=== PATIENT | female | born 1940 | race Caucasian/White ===

== ENCOUNTER → 2021-12-27 13:11 | Outpatient (CLI) | payer MEDICARE, SELFPAY ==
--- NOTE | 2021-12-27 | DI.ECHO.S_ITS ---
[facility] +---------+ : : [address] : : : : [id number] : : : : Phone: [phone]+ Echocardiogram Report + + :Name: RICHARD LARRY Study Date: 12/27/2021 Height: 60 in : :[facility] ReadingLocation: Weight: 247 lb : : Gender: Female BSA: 2.0 m2 : :: 1940 Age: 81 yrs BP: 148/82 mmHg: :Reason For Study: Atrial fibrillation : :Ordering Physician: FORD, : :FITZ Performed By: Jeff Maddox : :Referring: FITZ KENYON : + + Interpretation Summary 1) Normal left ventricular thickness, size, wall motion, and systolic function (EF 55-60%). 2) Normal right ventricular size with mildly reduced function. 3) Both atria are severely dilated. 4) There is mild aortic regurgitation. 5) There is mild aortic stenosis (valve 1.5cm2, mean gradient 8mmHg, severity ratio 0.52). 6) No prior Echo available for comparison. Procedure: A two-dimensional transthoracic echocardiogram with color flow and Doppler was performed. The study quality was technically adequate. There is no prior echocardiogram noted for this patient. Left Ventricle: The left ventricle is normal in size and wall thickness. Left ventricular systolic function is normal. The ejection fraction is estimated to be 55-60%. There are no focal wall motion abnormalities. Diastolic function could not be accurately assessed due to atrial fibrillation. Right Ventricle: The right ventricle is normal size. Right ventricular systolic function is mildly reduced. Atria: Both atria are severely dilated. The interatrial septum grossly appears intact with no obvious evidence for an atrial septal defect. Mitral Valve: There is mild mitral annular calcification. There is mild mitral regurgitation. Aortic Valve: The aortic valve is mildly calcified. There is mild aortic stenosis. There is mild aortic regurgitation. Tricuspid Valve: The tricuspid valve is normal in structure and function. There is mild tricuspid regurgitation. The right ventricular systolic pressure is estimated to be at least 39 mmHg based on an estimated right atrial pressure of 3 mm Hg. Pulmonic Valve: The pulmonic valve is not well seen, but is grossly normal. There is no pulmonic valvular regurgitation. Great Vessels: The aortic root is normal size. The dimensions of the ascending aorta are normal. The IVC is of normal diameter and collapses greater than 50% with a sniff. This suggests a low right atrial pressure of 3 mm Hg. Pericardium/ Pleura There is no pericardial effusion. There is no pleural effusion. MMode/2D Measurements & Calculations LVIDd: 5.0 cm LVOT diam: 2.0 cm LVIDs: 3.1 cm Ao root diam: 3.0 cm FS: 38.0 % asc Aorta Diam: 3.5 cm IVSd: 0.80 cm LVPWd: 0.80 cm LV zazueta. diameter/BSA (cm/m^2): 2.4 LV sys. diameter/BSA (cm/m^2): 1.5 LA dimension: 4.2 cm RA long axis: 6.7 cm LA A2 area: 29.6 cm2 IVC diam: 2.0 cm LA A4 area: 30.8 cm2 LA length (vol): 7.6 cm LA vol: 101.7 ml LA vol index: 49.8 ml/m2 TAPSE_phl: 2.1 cm Doppler Measurements & Calculations Ao V2 max: 184.0 cm/sec LVOT Max Valerio: 85.5 cm/sec Ao V2 mean: 135.0 cm/sec LV V1 max P.9 mmHg Ao max P.0 mmHg LV V1 VTI: 19.1 cm Ao mean P.0 mmHg DAYSI(I,D): 1.6 cm2 Ao V2 VTI: 36.4 cm DAYSI(V,D): 1.5 cm2 sev ratio: 0.52 DAYSI indexed to BSA (cm^2/m^2): 0.81 AI P1/2t: 451.8 msec AI dec slope: 258.0 cm/sec2 TR max valerio: 299.0 cm/sec SV(LVOT): 60.0 ml TR max P.8 mmHg AV P1/2t-pr_phl: 452.0 msec AV VR_phl: 0.46 DAYSI(VTI)/BSA_phl: 0.81 Reading Physician:11:15 AM
== END ==
PROVIDERS: PCP Nurse Practitioner; Referring Provider Internal Medicine Cardiovascular Disease; Visit Provider Internal Medicine Cardiovascular Disease
DX: I48.21 Permanent atrial fibrillation (principal); I08.3 Combined rheumatic disorders of mitral, aortic and tricuspid valves
CPT/HCPCS: 93306

== ENCOUNTER → 2023-11-20 15:37 | Outpatient (CLI) | payer MEDICARE, SELFPAY ==
--- NOTE | 2023-11-20 | DI.RAD.S_ITS ---
PROCEDURE: XR FEMUR RT MIN 2V INDICATIONS: Displaced comminuted fracture of shaft of right femur TECHNIQUE: 2 views of the femur were acquired. COMPARISON: None. FINDINGS: Bones: Right femoral fredrick in place. Proximal and distal transverse screws appear intact. Moderately comminuted, mainly transverse distal femoral metaphyseal fracture. There is moderate posterior displacement of the distal fracture fragment. No perihardware lucency. Severe arthritic changes in the knee. Soft tissues: No suspicious soft tissue calcifications or masses. Skin bharathi present in the proximal and distal soft tissues. IMPRESSION: Expected appearance of femoral fredrick placement without evidence of hardware complication. Redemonstrated distal femoral metaphyseal fracture. Dictated by: Kellen Castaneda M.D. on 11/20/2023 at 16:50 Approved by: Kellen Castaneda M.D. on 11/20/2023 at 16:52
== END ==
PROVIDERS: PCP Nurse Practitioner; Referring Provider Registered Nurse; Visit Provider Registered Nurse
DX: S72.352D Displaced comminuted fracture of shaft of left femur, subsequent encounter for closed fracture with routine healing (principal); X58.XXXD Exposure to other specified factors, subsequent encounter
CPT/HCPCS: 73552

== ENCOUNTER → 2023-12-08 15:14 | Outpatient (CLI) | payer MEDICARE, SELFPAY ==
--- NOTE | 2023-12-08 15:15 | DI.US.S_ITS ---
PROCEDURE: US EXTREMITY NONVASC LOWER RT INDICATIONS: MASS OF RIGHT CALF/EDEMA TECHNIQUE: Real-time scanning was performed of the right lower extremity , with image documentation. COMPARISON: Outside Facility, RG, CT LOWER EXTREMITY W/O CONTRAST, 11/05/2023, 3:14. Findings and impression: At the area of concern in the right medial calf, there is a 6.9 x 2.2 x 4.7 cm complex fluid collection. This may represent hematoma. Sterility is indeterminate. Consider future imaging surveillance to assess for resolution. Dictated by: Adán Perez M.D. on 12/08/2023 at 22:22 Approved by: Adán Perez M.D. on 12/08/2023 at 22:23
== END ==
PROVIDERS: PCP Nurse Practitioner; Referring Provider Nurse Practitioner Adult Health; Visit Provider Nurse Practitioner Adult Health
DX: R22.41 Localized swelling, mass and lump, right lower limb (principal)
CPT/HCPCS: 76882

== ENCOUNTER 2024-09-28 15:51 | Emergency (ER) | payer MEDICARE, SELFPAY ==
--- NOTE | 2024-09-28 | DI.RAD.S_ITS ---
PROCEDURE: XR FEMUR RT MIN 2V INDICATIONS: Follow right knee hardware up leg. TECHNIQUE: 2 views of the femur were acquired. COMPARISON: [facility], CR, XR FEMUR RT MIN 2V, 11/20/2023, 15:51. FINDINGS: Bones: Distal femoral fracture fixation again seen with an intramedullary nail and proximal and distal locking screws and additional metal screws distally. There is continued visualization of the lucent fracture line with corticated margins suspicious for nonunion. Mild lucency is seen surrounding the distal metal screws. Positioning on lateral views is suboptimal, although fracture alignment does not appear significantly changed. No new osseous abnormality is seen. Soft tissues: No suspicious soft tissue calcifications. IMPRESSION: Distal femoral fracture fixation hardware again seen with continued visualization of the fracture line suspicious for nonunion. Possible loosening of distal femoral screws. No new osseous abnormality. Approved by: Soham Klein M.D. on 09/28/2024 at 16:21
[2024-09-28 16:04] VITALS: BP 110/58; PULSE 77; RESP 16; TEMP 36.9; O2SAT 98; BMI 32.5
--- NOTE | 2024-09-28 16:10 | DI.RAD.S_ITS ---
PROCEDURE: XR KNEE RT 1TO2V INDICATIONS: felt a pop/pain/no fall TECHNIQUE: 2 views of the knee were acquired. COMPARISON: [facility], CR, XR FEMUR RT MIN 2V, 11/20/2023, 15:51. FINDINGS: Bones: Postsurgical changes again seen from distal femoral fracture fixation with an intramedullary nail and multiple metal screws. When compared to the exam from 11/20/2023, osseous alignment does not appear significantly changed. However, there does not appear to be significant osseous bridging across the fracture line. Possible mild lucency surrounding the screws could indicate. 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 Generalized osteopenia. Soft tissues: Small joint effusion. No suspicious soft tissue calcifications. IMPRESSION: 1. Postsurgical changes from distal femoral fracture fixation with continued visualization of the lucent fracture line suspicious for nonunion. Mild lucency surrounding the distal hardware could indicate loosening. 2. No new osseous abnormality. 3. 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 Approved by: Soham Klein M.D. on 09/28/2024 at 16:19
--- NOTE | 2024-09-28 18:21 | ED.LOWEXIN ---
HPI - Extremity Injury (Lower) <Eri Vera PA-C - Last Filed: 09/28/24 19:18> General Chief Complaint: Extremity Injury, Lower Stated Complaint: pain rt knee Time Seen by Provider: 09/28/24 17:55 Source: patient and family Mode of arrival: Wheelchair History of Present Illness HPI Narrative: Ms. Webb is a very pleasant 84-year-old female with a past medical history of CHF, hypertension, AFib on anticoagulation, prior distal right femur fracture repaired about 1 year ago who presents to the emergency department for right knee pain since this morning. Patient states when she got out of bed this morning she felt a pop and had acute pain of the right knee. She has been having difficulty bearing weight on it because of this pain. At baseline she ambulates with a walker but she does also use a wheelchair at home occasionally. She is here with her granddaughter and son-in-law. She denies any open wounds, numbness, tingling, weakness. She describes the pain as primarily on the anterior medial aspect of the right knee. Her family contributes that they are aware that she has some loosening hardware in her knee already. No fall or other injuries. No medications prior to arrival. Related Data Allergies Allergy/AdvReac Type Severity Reaction Status Date / Time inositol niacinate Allergy Redness of Verified 09/28/24 16:09 [From Niacin No Flush] Skin niacin [From Niacin No Flush] Allergy Redness of Verified 09/28/24 16:09 Skin Review of Systems <Eri Vera PA-C - Last Filed: 09/28/24 19:18> Review of Systems ROS Unobtainable: All systems reviewed & are unremarkable except as noted in HPI and below Patient History <Eri Vera PA-C - Last Filed: 09/28/24 19:18> Social History Smoking Status: Never smoker Smoking Status: Never smoker Exam <Eri Vera PA-C - Last Filed: 09/28/24 19:18> Narrative Exam Narrative: GENERAL: 84 year old patient appears stated age. Well-developed patient, in no acute distress, sitting in wheelchair. HEAD: Atraumatic. Normocephalic. CARDIOVASCULAR: Regular rate RESPIRATORY: ?Nonlabored respirations. ?Speaking in clear, full sentences. EXTREMITIES: Bilateral lower extremity edema. Right knee anterior surgical scar present. Patient has no pain with full extension of the knee, she does have pain with passive flexion of the knee. No obvious deformities, no skin changes. Palpable DP and PT pulses bilaterally and brisk capillary refill. Sensation intact to light touch on bilateral plantar and dorsal aspect of the feet. NEURO: AOx3. ?Clear speech. Is able to provide her own history. SKIN: Chronic thickened skin of bilateral lower extremities with no erythema or rashes or open wounds. Initial Vital Signs Initial Vital Signs: Vital Signs Temperature 98.4 F 09/28/24 16:04 Pulse Rate 77 09/28/24 16:04 Respiratory Rate 16 09/28/24 16:04 Blood Pressure 110/58 L 09/28/24 16:04 Pulse Oximetry 98 09/28/24 16:04 Oxygen Delivery Method Room Air 09/28/24 16:04 <Yehuda Huang MD - Last Filed: 09/28/24 20:56> Initial Vital Signs Initial Vital Signs: Vital Signs Temperature 98.4 F 09/28/24 16:04 Pulse Rate 77 09/28/24 16:04 Respiratory Rate 16 09/28/24 16:04 Blood Pressure 110/58 L 09/28/24 16:04 Pulse Oximetry 98 09/28/24 16:04 Oxygen Delivery Method Room Air 09/28/24 16:04 Course <Eri Vera PA-C - Last Filed: 09/28/24 19:18> Orders Ordered: ED Orders 09/28/24 16:10 XR knee RT 1to2V Stat Discontinued Medications Hydrocodone Bitart/Acetaminophen (Hydrocodone/Acet 5/325 Tablet) 1 tab PO NOW ONE Stop: 09/28/24 18:51 Last Admin: 09/28/24 19:35 Dose: 1 tab Documented By: JARAD Lidocaine (Lidocaine 5% Patch) 1 each TOP NOW ONE Stop: 09/28/24 18:51 Last Admin: 09/28/24 19:35 Dose: 1 each Documented By: JARAD Vital Signs Vital signs: Vital Signs - 8 hr 09/28/24 16:04 09/28/24 19:40 Temperature 98.4 F Pulse Rate 77 65 Respiratory Rate 16 26 H Blood Pressure 110/58 L 118/58 L Pulse Oximetry 98 97 Oxygen Delivery Method Room Air Room Air <Yehuda Huang MD - Last Filed: 09/28/24 20:56> Orders Ordered: ED Orders 09/28/24 16:10 XR knee RT 1to2V Stat Discontinued Medications Hydrocodone Bitart/Acetaminophen (Hydrocodone/Acet 5/325 Tablet) 1 tab PO NOW ONE Stop: 09/28/24 18:51 Last Admin: 09/28/24 19:35 Dose: 1 tab Documented By: JARAD Lidocaine (Lidocaine 5% Patch) 1 each TOP NOW ONE Stop: 09/28/24 18:51 Last Admin: 09/28/24 19:35 Dose: 1 each Documented By: JARAD Vital Signs Vital signs: Vital Signs - 8 hr 09/28/24 16:04 09/28/24 19:40 Temperature 98.4 F Pulse Rate 77 65 Respiratory Rate 16 26 H Blood Pressure 110/58 L 118/58 L Pulse Oximetry 98 97 Oxygen Delivery Method Room Air Room Air MDM - Extremity Injury (Lower) <Eri Vera PA-C - Last Filed: 09/28/24 19:18> Imaging Data Right Femur X-Ray: Radiologist's Impression: PROCEDURE: XR FEMUR RT MIN 2V INDICATIONS: Follow right knee hardware up leg. TECHNIQUE: 2 views of the femur were acquired. COMPARISON: [facility], XR FEMUR RT MIN 2V, 11/20/2023, 15:51. FINDINGS: Bones: Distal femoral fracture fixation again seen with an intramedullary nail and proximal and distal locking screws and additional metal screws distally. There is continued visualization of the lucent fracture line with corticated margins suspicious for nonunion. Mild lucency is seen surrounding the distal metal screws. Positioning on lateral views is suboptimal, although fracture alignment does not appear significantly changed. No new osseous abnormality is seen. Soft tissues: No suspicious soft tissue calcifications. IMPRESSION: Distal femoral fracture fixation hardware again seen with continued visualization of the fracture line suspicious for nonunion. Possible loosening of distal femoral screws. No new osseous abnormality. Approved by: Soham Klein M.D. on 09/28/2024 at 16:21 Right Knee X-Ray: Radiologist's Impression: PROCEDURE: XR KNEE RT 1TO2V INDICATIONS: felt a pop/pain/no fall TECHNIQUE: 2 views of the knee were acquired. COMPARISON: [facility], , XR FEMUR RT MIN 2V, 11/20/2023, 15:51. FINDINGS: Bones: Postsurgical changes again seen from distal femoral fracture fixation with an intramedullary nail and multiple metal screws. When compared to the exam from 11/20/2023, osseous alignment does not appear significantly changed. However, there does not appear to be significant osseous bridging across the fracture line. Possible mild lucency surrounding the screws could indicate. 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 Generalized osteopenia. Soft tissues: Small joint effusion. No suspicious soft tissue calcifications. IMPRESSION: 1. Postsurgical changes from distal femoral fracture fixation with continued visualization of the lucent fracture line suspicious for nonunion. Mild lucency surrounding the distal hardware could indicate loosening. 2. No new osseous abnormality. 3. 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 Approved by: Soham Klein M.D. on 09/28/2024 at 16:19 MDM Narrative Medical decision making narrative: 84-year-old female with a past medical history of CHF, hypertension, AFib on anticoagulation, prior distal right femur fracture repaired about 1 year ago who presents to the emergency department for right knee pain since this morning. Differential diagnosis includes but isn't limited to right knee sprain, strain, fracture, arthritis, hardware prominence, etc. On exam patient is in no acute distress, nontoxic appearing, vital signs appropriate. Lower extremities are neurovascularly intact, no deformity of right knee. No signs of infection. She has pain with weight-bearing, history concerning for possible soft tissue injury given patient experienced a pop and then had acute pain. X-ray right femur knee obtained in triage reveals no acute osseous abnormalities. Patient does have postsurgical changes revealing fracture nonunion and hardware loosening. She also has tricompartmental osteoarthritis severe in the medial femoral tibial compartment. Discussed all results with the patient and her family members, christiees results and provided them with copies. She is interested in prompted discharge home. After shared decision-making, we will proceed with 1 dose of hydrocodone-acetaminophen, Lidoderm, Marty wrap, she will continue using her walker and wheelchair at home as needed and follow up with her orthopedic surgeon early next week. Discussed strict ED return precautions. Patient family verbalized understanding of all information agreeable with plan. Patient stable for discharge home. 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 Today you were evaluated for right knee pain. X-rays of your right knee and femur revealed no new bony abnormalities but you do have severe tricompartmental osteoarthritis and nonunion of your prior femur fracture with possible loosening of screws. I suspect that the pain and ?pop? you felt this morning may have been from a soft tissue injury exacerbating these chronic changes. Please continue using the right knee Marty wrap for support, use your walker for ambulation, and follow up with your orthopedic surgeon early next week for further management. Please use RICE therapy for your pain in addition to acetaminophen. Rest the painful area. Ice the area of pain/swelling for at least 15 minutes, 4x a day. Compress the area of swelling using a brace, wrap, or splint if applied. Elevate the painful or swollen extremity by supporting it above the level of the heart with pillows when sitting or laying. Please follow up with your primary care doctor within the next 2-3 days for ER follow-up. (If you do not have a PCP you can call [phone]. ?to schedule an appointment with an [facility] Primary Care Provider) IF YOU DEVELOP ANY NEW OR WORSENING SYMPTOMS, RETURN TO THE ER! Please read the attached instructions, they highlight more specific treatments and interventions for you at home. Thank you for letting me participate in your care, Eri Vera PA-C Referrals: Shey Marie ARNP [Primary Care Provider] - Stand Alone Forms: Patient Portal/API/Survey ED Sign-out <Yehuda Huang MD - Last Filed: 05/24/25 20:56> Cosign ED Attending Cosignature Attestation: I was immediately available in the department for consultation. This documentation has been reviewed and I agree with assessment and plan. Supervised by Yehuda Huang MD
[2024-09-28] MEDS: LIDOCAINE 5% PATCH 1 EACH TOP (19:35)
[2024-09-28] MEDS: HYDROCODONE/ACET 5/325 TABLET 1 TAB PO (19:35)
[2024-09-28 19:40] VITALS: BP 118/58; PULSE 65; RESP 26; O2SAT 97
== END 2024-09-28 19:45 | disposition home or self-care (01) ==
PROVIDERS: Emergency Provider Physician Assistant; PCP Nurse Practitioner
DX: S86.911A Strain of unspecified muscle(s) and tendon(s) at lower leg level, right leg, initial encounter (principal); M17.11 Unilateral primary osteoarthritis, right knee; S72.401K Unspecified fracture of lower end of right femur, subsequent encounter for closed fracture with nonunion; Z79.01 Long term (current) use of anticoagulants
CPT/HCPCS: 73552; 73560; 99283

== ENCOUNTER 2024-10-31 08:04 | Emergency (ER) | payer MEDICARE, SELFPAY ==
[2024-10-31 08:20] VITALS: BP 129/58; PULSE 75; RESP 16; TEMP 36.5; O2SAT 98; BMI 36.3
--- NOTE | 2024-10-31 08:26 | ED_ITS ---
HPI - General Adult General Chief complaint: Extremity Injury, Lower Stated complaint: Fractured right knee ,one month Time Seen by Provider: 10/31/24 08:05 History of Present Illness HPI narrative: 84-year-old woman with a history of AFib, anticoagulated, congestive heart failure, hypertension prior distal right femur fraction post repair 1 year ago who had a 2nd injury to this knee on September 28 of this year. Currently got out of bed stood up and felt a pop. Experienced acute pain, was seen in the emergency department with x-ray at that time showing distal femoral fracture fixation hardware with continued visualization of the fracture line suspicious for nonunion. Possible loosening of distal femoral screws no new bony abnormality, concern for nonunion over the last year and noted severe tricompartmental osteoarthritis. Patient typically use a wheelchair and a walker at home and has been able to mobilize. She has been using some Tylenol finds that is sometimes works and sometimes it is not quite enough to help with her overall pain. She is worried that is a bit more swelling and over the last week she has noticed bruising over the medial aspect that is quite firm to palpation with continued mild right knee effusion/swelling. Related Data Previous Rx's ?Medication ?Instructions ?Recorded tramadol 25 mg tablet 25 mg PO Q6H PRN pain #14 ta bs 10/31/24 Allergies Allergy/AdvReac Type Severity Reaction Status Date / Time inositol niacinate (From Allergy Redness of Verified 09/28/24 16:09 Niacin No Flush) Skin niacin (From Niacin No Flush) Allergy Redness of Verified 09/28/24 16:09 Skin Review of Systems Review of Systems Narrative: Pertinent positive and negative findings as per HPI Patient History Medical History (Updated 10/31/24 @ 10:07 by Yue Willett MD) Congestive heart failure Hypertension Afib Exam Initial Vital Signs Initial Vital Signs: General: Alert appropriate in no acute distress Respiratory: Able to speak in full sentences, no obvious respiratory distress Skin: No obvious rashes, warm and dry Neurologic: Grossly intact no obvious asymmetries or abnormalities Psych: appropriate insight and affect, cooperative Extremity: Right knee has slight effusion, there is a medial hematoma with some fibrous consolidation to the hematoma. It is firm but not particularly tender. She can extend the knee. She has been able to walk with a walker. Has mild calf swelling consistent with the knee effusion, no mid calf tenderness. No warmth or redness to suggest septic joint Course Orders Ordered: ED Orders 10/31/24 08:25 XR knee RT 3V Stat Medical Decision Making Imaging Data X-ray knee: Radiologist's Impression: PROCEDURE: XR KNEE RT 3V INDICATIONS: trauma, more pain after injury 10/05, xrays on 10/05 TECHNIQUE: 3 views of the knee were acquired. COMPARISON: [facility], CR, XR KNEE RT 1TO2V, 09/28/2024, 16:40. FINDINGS: Bones: Screw and fredrick fixation of the distal femur. The medial screw has loosened, and is medially subluxed. Tricompartmental joint space narrowing with associated osteophytosis. Subchondral cystic change and early bony deformity of the medial tibiofemoral compartment. Soft tissues: No joint effusion. No suspicious soft tissue calcifications. IMPRESSION: Loosening of the medial distal fibula screw, with medial subluxation. Moderate to severe tricompartmental osteoarthritis. Kellgren-Josemanuel Grade 2-3. Dictated by: Kenneth Arzate M.D. on 10/31/2024 at 8:56 MDM Narrative Medical decision making narrative: 84-year-old woman presents with worsening right knee pain. She has been seen about a month ago after sensing a pop with simply getting out of bed. X-ray at that time did not show acute fracture, did suggest mild lucency surrounding the distal knee hardware could indicate loosening. She is anticoagulated, she is noticing a hematoma developing medial aspect of the knee that appears to be old blood seeping to the surface, there is a fibrotic core to this. The hematoma itself does not seem to be particularly tender and there is no evidence of other warmth or redness to suggest septic joint. X-ray repeated today similarly suggests loosening of the medial distal fibular screw without obvious fracture We discussed options. In the past tramadol has been helpful in controlling her pain. She can use Tylenol, she is anticoagulated so nonsteroidals are not going to be appropriate. With shared decision-making we opted to discharge her home with a small prescription of tramadol, instructions to call to follow up with her primary orthopedic surgeon in [place] to schedule a follow up appointment. Told her that it would be okay to continue to use her walker, icing the knee if that is hurting more would be useful. There was no indication for additional imaging, hospitalization or further studies and she is safe for discharge Discharge Plan Departure Patient Disposition: Home Clinical Impression: Acute pain of right knee Instructions: DI for Knee Pain Activity Restrictions/Additional Instructions: Thank you for coming in today You clearly have severe arthritis in your knee, with the minor injury a month ago there likely was some bleeding. This can be worse when you are on a blood thinner. The bruising that you are noticing on the middle portion of your knee looks like it is older blood that is now working its way to the surface. This is not something the knees hospitalization or other immediate attention. It is okay to continue to use your walker. Tylenol for pain control will be appropriate, you can add tramadol to that for pain control as that has worked well for you in the past. If that helps with sleep, please do use it. Icing if it seems particularly swollen after you have been up and about more we will be helpful I would recommend you contact your orthopedic surgeon in [place] and schedule follow up appointment in the near future I have asked that the x-rays from today and a month ago be electronically transmitted up to the [facility] system so that the orthopedic surgeon can review them in real-time. You are tramadol prescription was sent to [facility] in [place] If you find that you are getting worse or develop any new symptoms, please feel free to return to the emergency department for further evaluation. Prescriptions: New tramadol 25 mg tablet 25 mg PO Q6H PRN (Reason: pain) Qty: 14 0RF Referrals: Shey Marie ARNP [Primary Care Provider, Nursing] Stand Alone Forms: Patient Portal/API
[2024-10-31 08:35] VITALS: PULSE 75
[2024-10-31 10:18] VITALS: BP 112/58; PULSE 73; RESP 18; O2SAT 96
== END 2024-10-31 10:20 | disposition home or self-care (01) ==
PROVIDERS: Emergency Provider Emergency Medicine; PCP Nurse Practitioner
DX: M25.561 Pain in right knee (principal)
CPT/HCPCS: 73562; 99281; 99283